=== PATIENT | female | born 1990 | race Caucasian/White ===

== ENCOUNTER 2016-08-01 01:26 | Emergency (ER) | payer SELFPAY ==
--- NOTE | 2016-08-02 13:24 | ER ---
ADMIT: 08/01/2016 RM/LOC: ER [facility] MR#: [id number] [id number] RAÚL REVELESLEY [place] [address] Emergency Room Report SEX: F AGE: 26 : 1990 DATE: 08/01/2016 TIME: 0126 hours. Please refer to my T-sheet for complete H and P. HISTORY OF PRESENT ILLNESS: Briefly, the patient is a 26-year-old, comes in with some abdominal pain about 4 days, it is on the right side. She has been nauseous, vomiting, and some diarrhea. Rates it 5/10. It is crampy all over. PHYSICAL EXAMINATION: VITAL SIGNS: Blood pressure 163/79, pulse 97, respirations 20, temp 99, saturating 97%. GENERAL: No acute distress. HEENT: Grossly normal. LUNGS: Clear. HEART: Regular. ABDOMEN: Tender to palpation diffusely on the right side. She is morbidly obese and it is hard to get a good exam. EXTREMITIES: 1+ edema. SKIN: No rash. EMERGENCY DEPARTMENT COURSE: CBC was normal except white count 11.8, hemoglobin 11.1. Chemistries normal except glucose 105, AST 47. UA showed 1+ blood, 13 white cells, 3 red cells, 1+ leukocyte esterase. Urine was negative. CT scan, which revealed right perinephric stranding, question of early pyelonephritis; 60 mm of liver lesion that would need to be followed up as per our radiology read today. I gave the patient a liter of normal saline bolus, Zofran 4 mg IV, 4 mg of morphine, she was feeling much better, Cipro 500 mg p.o., and she was ready for discharge. ASSESSMENT: 1. Abdominal pain. 2. Urinary tract infection. 3. Liver lesion and the need to follow up. I just talked directly with her and others in the room, they understood the need to follow this up. PLAN: Cipro 500 mg b.i.d. for 7 days; [place] 5 mg, I gave her #15. Return if worse, fluids, follow up with [facility], recheck a urine and address the local radiologist read of the liver lesion. Renzo Ward MD/ aung JOB #: [id number] CC: Renzo Ward MD, Attending Physician Yohan Ndiaye MD, Family Physician . [facility]
== END 2016-08-01 04:05 | disposition home or self-care (01) ==
LOC: ER 01:26
DX: N39.0 Urinary tract infection, site not specified (principal); F17.210 Nicotine dependence, cigarettes, uncomplicated